=== PATIENT | male | born 1995 | race Caucasian/White ===

== ENCOUNTER 2018-10-06 13:53 | Observation (INO) | payer OTHER ==
[2018-10-06] VITALS (26 sets, daily range): BP systolic 100–138; BP diastolic 35–66
[2018-10-06 17:30] LABS: BASOPHILS 0.1 % (0.0-2.0); HEMATOCRIT 33.1 % (42.0-52.0); HEMOGLOBIN 11.1 gm/dL (14.0-18.0); LYMPHOCYTES 6.6 % (24.0-44.0); MCH 30.8 pg (26.0-34.0); MCHC 33.6 g/dL (28.0-37.0); MCV 91.6 fL (80.0-100.0); MONOCYTES 7.7 % (1.0-8.0); PLATELET COUNT 135 thou/uL (150-400); POLYS 85.6 % (36.0-66.0); RBC 3.61 mil/uL (4.50-6.00); RDW 13.8 % (10.5-14.5); WBC 14.1 thou/uL (4.0-11.0)
[2018-10-06 17:43] LABS: APTT 23.8 Seconds (24.5-32.8); FIBRINOGEN 273.4 mg/dL (210-360); INR 1.1
[2018-10-06 17:56] LABS: ALBUMIN 2.5 g/dL (3.4-5.0); DIRECT BILIRUBIN 0.1 mg/dL (<0.1-0.3); PHOSPHORUS 2.9 mg/dL (2.5-4.9); TOTAL BILIRUBIN 0.5 mg/dL (<0.1-1.0); TOTAL PROTEIN 5.1 g/dL (6.4-8.2)
[2018-10-07] VITALS (27 sets, daily range): BP systolic 94–139; BP diastolic 35–78
[2018-10-07 04:55] LABS: ABSOLUTE NEUTROPHILS 7.4 thou/uL (1.4-8.2); HEMATOCRIT 32.7 % (42.0-52.0); HEMOGLOBIN 10.8 gm/dL (14.0-18.0); LYMPHOCYTES 5.3 % (24.0-44.0); MCHC 33.2 g/dL (28.0-37.0); MCV 93.4 fL (80.0-100.0); MONOCYTES 3.4 % (1.0-8.0); PLATELET COUNT 112 thou/uL (150-400); POLYS 91.3 % (36.0-66.0); RDW 13.9 % (10.5-14.5); WBC 8.1 thou/uL (4.0-11.0)
[2018-10-07 05:03] LABS: FIBRINOGEN 262.2 mg/dL (210-360); INR 1.3; PROTIME 13.2 Seconds (9.3-11.4)
[2018-10-07 05:17] LABS: ALBUMIN 2.7 g/dL (3.4-5.0); DIRECT BILIRUBIN 0.2 mg/dL (<0.1-0.3); PHOSPHORUS 3.8 mg/dL (2.5-4.9); TOTAL BILIRUBIN 0.7 mg/dL (<0.1-1.0); TOTAL PROTEIN 5.1 g/dL (6.4-8.2)
--- NOTE | 2018-10-07 11:06 | 2DMMODE ---
[facility] [address] [place] [address] 2 D/M-MODE ECHOCARDIOGRAM Name: PORSCHE MIRANDA [place] Room #: 236-P ADM IN M.R.#: [id number] ������������� Admission: 10/06/18 ������������� Attend Phys: [employer] Discharge: ��� ������������� ��� Date of : 89 Date of Service: 10/07/18 1105 �� Report #: [id number] �������� ��������������������������������������������[id number] THIS REPORT FOR: //name// ADDENDUM APPROVED REPORT Study performed: 10/07/2018 08:02:48 EXAM: Comprehensive 2D, Doppler, and color-flow Echocardiogram Patient Location: ICU Room #: 236 Status: routine BSA: 1.98 HR: 83 bpm BP: 118/55 mmHg Rhythm: NSR Other Information Study Quality: Good Indications Evaluate Left Ventricular Function 2D Dimensions RVDd: 33.62 mm IVSd: 10.86 (7-11mm) LVOT Diam: 24.33 (18-24mm) LVDd: 51.82 mm PWd: 11.15 (7-11mm) Ascending Ao: 30.06 (22-36mm) LVDs: 33.17 (25-40mm) Aortic Root: 32.06 mm Volumes Left Atrial Volume (Systole) Single Plane 4CH: 53.01 mL Single Plane 2CH: 29.58 mL Left Ventricle The left ventricle is normal size. There is normal LV segmental wall motion. There is normal left ventricular wall thickness. Left ventricular systolic function is normal. The left ventricular ejection fraction is within the normal range. LVEF is 55-60%. The left ventricular diastolic function is normal. Right Ventricle The right ventricle is normal size. The right ventricular systolic function is normal. [facility] [address] [place] [address] 2 D/M-MODE ECHOCARDIOGRAM Name: PORSCHE MIRANDA [place] Room #: 236-P ADM IN M.R.#: [id number] ������������� Admission: 10/06/18 ������������� Attend Phys: [employer] Discharge: ��� ������������� ��� Date of : 89 Date of Service: 10/07/18 1105 �� Report #: [id number] �������� ��������������������������������������������[id number] [place] The left atrium size is normal. The right atrium size is normal. Aortic Valve The aortic valve is normal in structure. No aortic regurgitation is present. There is no aortic valvular stenosis. Mitral Valve The mitral valve is normal in structure. There is no mitral valve regurgitation noted. No evidence of mitral valve stenosis. Tricuspid Valve The tricuspid valve is normal in structure. There is no tricuspid valve regurgitation noted. Pulmonic Valve The pulmonary valve is normal in structure. There is no pulmonic valvular regurgitation. Great Vessels The aortic root is normal in size. The inferior vena cava is dilated with no inspiratory collapse. Pericardium Trace to small pericardial effusion <Conclusion> Left ventricular systolic function is normal. There is normal LV segmental wall motion. LVEF is 55-60%. Normal diastolic function The aortic valve is normal in structure. No aortic regurgitation or stenosis The mitral valve is normal in structure. No mitral valve regurgitation. Trace to small pericardial effusion ��������������������������������������������� <ELECTRONICALLY SIGNED> ���������������������������������������� By: Connor Clemons MD, FACC ��������������������������������������������� 10/07/18 1105 1105 110 Connor Clemons MD, FACC /INF
[2018-10-07 14:08] LABS: ABSOLUTE NEUTROPHILS 6.8 thou/uL (1.4-8.2); HEMATOCRIT 31.8 % (42.0-52.0); HEMOGLOBIN 10.8 gm/dL (14.0-18.0); LYMPHOCYTES 5.6 % (24.0-44.0); MCH 31.5 pg (26.0-34.0); MCHC 34.1 g/dL (28.0-37.0); MCV 92.4 fL (80.0-100.0); MONOCYTES 8.6 % (1.0-8.0); PLATELET COUNT 114 thou/uL (150-400); POLYS 85.8 % (36.0-66.0); RBC 3.44 mil/uL (4.50-6.00); RDW 13.8 % (10.5-14.5)
[2018-10-07 14:21] LABS: APTT 28.9 Seconds (24.5-32.8); FIBRINOGEN 258.6 mg/dL (210-360); INR 1.2
[2018-10-07 14:24] LABS: ALBUMIN 2.9 g/dL (3.4-5.0); CALCIUM 8.5 mg/dL (8.5-10.1); CREATININE 0.6 mg/dL (0.7-1.3); DIRECT BILIRUBIN 0.1 mg/dL (<0.1-0.3); MAGNESIUM 1.8 mg/dL (1.8-2.4); PHOSPHORUS 4.4 mg/dL (2.5-4.9); POTASSIUM 4.2 mmol/L (3.5-5.1); TOTAL BILIRUBIN 0.6 mg/dL (<0.1-1.0); TOTAL PROTEIN 5.3 g/dL (6.4-8.2)
[2018-10-07 17:16] LABS: URINE BILIRUBIN NEGATIVE (Negative); URINE BLOOD TRACE (Negative); URINE CLARITY CLEAR; URINE COLOR YELLOW; URINE GLUCOSE-RANDOM* NEGATIVE (Negative); URINE KETONES NEGATIVE (Negative); URINE LEUKOCYTES-REFLEX NEGATIVE (Negative); URINE NITRITE-REFLEX NEGATIVE (Negative); URINE PROTEIN (DIPSTICK) TRACE (Negative); URINE UROBILINOGEN 0.2 E.U./dl (0.2-1.0)
[2018-10-07 23:41] LABS: ALBUMIN 2.7 g/dL (3.4-5.0); DIRECT BILIRUBIN 0.1 mg/dL (<0.1-0.3); MAGNESIUM 1.8 mg/dL (1.8-2.4); PHOSPHORUS 3.1 mg/dL (2.5-4.9); TOTAL BILIRUBIN 0.6 mg/dL (<0.1-1.0); TOTAL PROTEIN 4.9 g/dL (6.4-8.2)
[2018-10-08 03:47] LABS: BE(vivo) 0 mmol/L (-2 to +3); HCO3 23.4 mmol/L (22.0-26.0); PCO2 33.6 mmHg (35.0-45.0); PO2 524.5 mmHg (80.0-100.0); pH 7.461 (7.360-7.450); sO2 99.9 % (92.0-98.0)
[2018-10-08 03:50] LABS: BE(vivo) 0.8 mmol/L (-2 to +3); HCO3 23.7 mmol/L (22.0-26.0); PO2 475.2 mmHg (80.0-100.0); pH 7.488 (7.360-7.450); sO2 99.9 % (92.0-98.0)
[2018-10-08 03:58] LABS: BE(vivo) 1.9 mmol/L (-2 to +3); HCO3 24.4 mmol/L (22.0-26.0); PCO2 30.9 mmHg (35.0-45.0); PO2 343.1 mmHg (80.0-100.0); pH 7.515 (7.360-7.450); sO2 99.8 % (92.0-98.0)
[2018-10-08 04:52] LABS: pH 7.493 (7.360-7.450)
[2018-10-08 04:53] LABS: BE(vivo) 1.1 mmol/L (-2 to +3); PO2 527.8 mmHg (80.0-100.0)
[2018-10-08 04:54] LABS: sO2 99.9 % (92.0-98.0)
--- NOTE | 2018-10-08 18:32 | EKG ---
[place] [address] [facility] [place] [address] ELECTROCARDIOGRAM REPORT Name: PORSCHE MIRANDA [place] Room #: 236-[facility] M.R.#: [id number] ������������������ Admission: 10/06/18 ������������������ Attend Phys: [employer] Discharge: 10/08/18 ������������������ Date of : 89 Report #: [id number] ����������������������������������������������������������������� [id number] THIS REPORT FOR: //name// [facility] Test Date: 2018-10-07 Test Time: 07:05:06 Pat Name: PORSCHE HARCOURT Department: Room: 236 Gender: M [employer]ester: AIDAN : 1995 Requested By: [facility] Order Number: [id number] MD: Barry Lao Measurements Intervals May Rate: 75 P: 56 MS: 118 QRS: 82 QRSD: 92 T: 86 QT: 419 QTc: 468 Interpretive Statements Sinus rhythm Borderline left atrial enlargement short MS interval RSR' in V1 Nonspecific ST-T wave changes No previous ECG available for comparison Electronically Signed On 10-08-2018 18:32:34 CDT by Barry Lao [email or web address] ��������������������������������������������� <ELECTRONICALLY SIGNED> ���������������������������������������� By: Barry Lao MD ��������������������������������������������� 10/08/18 1832 4 4 Barry Lao MD /EPI
== END 2018-10-08 05:40 ==
LOC: ICUDONOR 13:53 → ICU 16:39
DX: I50.1 Left ventricular failure, unspecified (principal)
CPT/HCPCS: 47375; 50101; 57103; 62110; 62900; 65040